=== PATIENT | male | born 1955 | race Caucasian/White ===

== ENCOUNTER 2021-10-30 16:13 | Emergency (ER) | payer MEDICARE, SELFPAY ==
--- NOTE | ~2021-10-30 | CT_ITS ---
EXAMINATION: CT abdomen pelvis wo con DATE: 10/30/2021 16:57 INDICATION: Left flank pain and dysuria TECHNIQUE: Computed tomography (CT) of the abdomen and pelvis was performed without intravenous contr ast. The dose-length product (DLP) was 655.30 mGy-cm. Automated exposure control and iterative recons truction technique were employed. COMPARISON: 02/05/2009 FINDINGS: The lung bases are clear. The heart size is normal. There is focal fatty infiltration of th e liver near the ligamentum teres. The spleen, pancreas, gallbladder, and adrenal glands are normal. There are multiple stones at the left ureterovesicular junction which measure up to 3 mm and cause mi ld left hydroureteronephrosis. Nonobstructing stones of the left kidney measure up to 5 mm. Nonobstru cting stones of the right kidney measure up to 8 mm. No pathologically enlarged abdominal or pelvic l ymph nodes are identified. There is no free intraperitoneal gas or evidence of bowel obstruction. Col onic diverticulosis is present without evidence of diverticulitis. There is severe lumbar spondylosis . There is a small umbilical hernia containing fat. IMPRESSION: 1. Multiple stones at the left ureterovesicular junction measuring up to 3 mm causing mild left hydro ureteronephrosis. 2. Bilateral nonobstructing nephrolithiasis. Reviewed, dictated and finalized at location F. IMPRESSION: 1. Multiple stones at the left ureterovesicular junction measuring up to 3 mm c ausing mild left hydroureteronephrosis. 2. Bilateral nonobstructing nephrolithiasis.
[2021-10-30 16:32] VITALS: BP 160/109; PULSE 80; RESP 16; TEMP 35.8; O2SAT 98
[2021-10-30] MEDS: KETOROLAC (*BKC) 60 MG/2 ML VIAL IM (16:39)
[2021-10-30 16:46] LABS: Add Urine Microscopic? YES; Appearance Urine Clear (Clear); Bilirubin Urine Negative (Negative); Blood Urine 3+ (Negative); Color Urine Light Yellow (Yellow); Glucose Urine UA Negative (Negative); Ketones Urine Negative (Negative); Leukocyte Esterase Ur Negative (Negative); Nitrate Urine Negative (Negative); Protein Urine Negative (Negative); Urobilinogen Urine 0.2 mg/dL (0.2-1.0)
[2021-10-30 16:47] LABS: Basophils Absolute Auto 0.03 K/mm3 (0.00-0.10); Basophils Percent Auto 0.4 % (0.0-1.0); Eosinophils Absolute Auto 0.09 K/mm3 (0.02-0.50); Eosinophils Percent Auto 1.1 % (1.0-6.0); Hematocrit 44.3 % (37.0-46.0); Hemoglobin 14.6 g/dL (12.4-15.3); Immature Granulocyte Absolute 0.05 K/mm3 (0.00-0.00); Immature Granulocyte Percent A 0.6 % (0.0-0.0); Lymphocytes Absolute Auto 0.89 K/mm3 (1.10-4.50); Lymphocytes Percent Auto 11.1 % (18.0-42.0); Mean Corpuscular Hemoglobin 29.6 pg (27.0-31.0); Mean Corpuscular Volume 89.7 fL (78.0-102.0); Mean Platelet Volume 10.3 fl (8.7-11.0); Monocytes Percent Auto 7.5 % (2.0-11.0); Neutrophils Absolute Auto 6.4 K/mm3 (1.7-7.2); Neutrophils Percent Auto 79.3 % (50.0-70.0); Platelet Count Result 244 K/mm3 (150-420); Red Blood Count 4.94 M/mm3 (4.70-6.10); Red Cell Distribution Width 13.3 % (11.6-14.4); White Blood Count 8.1 K/mm3 (4.8-10.8)
[2021-10-30 16:56] LABS: Squamous Epithelial Cell Urine Rare /hpf (Few); WBC Urine None seen /hpf (0-3)
[2021-10-30 16:57] LABS: Bacteria Urine Trace /hpf
[2021-10-30 17:00] LABS: Alanine Aminotransferase 38 U/L (16-63); Albumin Level 3.5 g/dL (3.4-5.0); Alkaline Phosphatase 62 U/L (46-116); Anion Gap 7 mmol/L (8-16); Aspartate Amino Transferase 38 U/L (15-37); Bilirubin,Total 0.4 mg/dL (0.00-1.00); Blood Urea Nitrogen 30 mg/dL (7-18); Calcium 8.5 mg/dL (8.5-10.1); Carbon Dioxide 27 mmol/L (21-32); Chloride 105 mmol/L (98-108); Estimated CRCL calculation 58 ml/min; Estimated Glomerular Filt Rate 60; Glucose 93 mg/dL (70-99); Lipase 129 U/L (73-393); Osmolality Calculated 294 mOsm/kg (285-295); Potassium 3.9 mmol/L (3.5-5.1); Sodium 139 mmol/L (136-145); Total Protein 6.7 g/dL (6.4-8.2)
--- NOTE | 2021-10-30 17:49 | ED.MALEGU ---
HPI - Male Genitourinary General Chief complaint: Urogenital-Male Stated complaint: possible kidney stones Time Seen by Provider: 10/30/21 16:15 Source: patient, EMS and RN notes reviewed Mode of arrival: ambulatory Limitations: no limitations History of Present Illness Complaint: other (left flank pain) Onset (ago): day(s) (1) Duration: progressively worsening Radiation: left flank Severity: moderate Severity scale (1-10): 7 Quality: aching and dull Relieving factors: none Exacerbating factors: none Related Data Home Medications Medication Instructions Recorded Confirmed ascorbate calcium (vitamin C) 500 500 mg PO DAILY 08/20/21 10/02/21 mg tablet cholecalciferol (vitamin D3) 10 10 mcg PO DAILY 08/20/21 10/02/21 mcg (400 unit) capsule meloxicam 7.5 mg tablet 7.5 mg PO DAILY 08/20/21 10/02/21 tumeric 100 mg-nkechi 150 mg-olive 1 cap PO DAILY 08/20/21 10/02/21 50 mg-oreg 150 mg-caprylate capsule Allergies Allergy/AdvReac Type Severity Reaction Status Date / Time erythromycin base AdvReac Unknown Abdominal Verified 10/30/21 17:11 discomfort Review of Systems Review of Systems: All systems reviewed & are unremarkable except as noted in HPI and below PMFSH Past Medical History Medical History Bilateral kidney stones Surgical History Surgical History History of hand surgery (~07/2019) Family History Family History Father Cancer Social History Social History Smoking status: Never smoker Alcohol intake: never Exam Const: General: no acute distress Orientation/consciousness: patient oriented x3 Limitations: no limitations HENMT: Ears: EAC's normal General nose exam: Normal external nose present and Normal nares present Face and sinus: sinuses nontender Mouth: Yes moist mucous membranes Eyes: Conjunctivae: conjunctivae normal Pupils: Equal, round and reactive pupils present EOM: EOMs intact bilaterally Neck: Neck: normal visual inspection and no lymphadenopathy Chest: Chest palpation & inspection: normal inspection of the chest Resp: Effort & Inspection: normal respiratory effort Auscultation: clear to auscultation bilaterally Cardio: Rate: regular rate Rhythm: regular rhythm GI: GI Palp: Yes Soft to palpation and No Tenderness to palpation present (GI) Auscultation: normal bowel sounds : General: Yes bladder normal to palpation and Yes no CVA tenderness Male General Exam: Yes normal external exam Back/Spine/Pelvis: Back: no CVA tenderness Skin: General skin exam: normal color Rashes: no rashes Neuro: General: patient oriented x3, moves all extremities, no meningeal signs and no focal motor deficits Cranial nerves: Yes CN's II-XII intact bilaterally Speech: normal speech Extrem: General: normal to inspection and no pedal edema Psych: Appearance: grossly normal and well kempt Mental Status: mental status grossly normal Affect: normal affect Attitude: cooperative Thought content: Yes Normal thought content present Course Course Emergency Course: Pt was stable in the ED. Less painful. Reevaluation(s) Date: 10/30/21 Time: 17:10 Vital Signs Vital signs: Vital Signs Temperature 35.8 C L 10/30/21 16:32 Pulse Rate 80 10/30/21 16:32 Respiratory Rate 16 10/30/21 16:32 Blood Pressure 160/109 H 10/30/21 16:32 Pulse Oximetry 98 10/30/21 16:32 Temperature 35.8 C L 10/30/21 16:32 Pulse Rate 80 10/30/21 16:32 Respiratory Rate 16 10/30/21 16:32 Blood Pressure 160/109 H 10/30/21 16:32 Pulse Oximetry 98 10/30/21 16:32 MDM - Male Genitourinary Differential Diagnosis Differential diagnosis: Likely other (kidney stones.) Medical Records Attestation: I reviewed the patient's medical records. Lab Data Attesta
[2021-10-30 18:12] VITALS: BP 145/86; PULSE 59; RESP 16; TEMP 36.6; O2SAT 100
== END 2021-10-30 18:14 | disposition home or self-care (01) ==
PROVIDERS: Emergency Provider Emergency Medicine; PCP Family Medicine
DX: N20.0 Calculus of kidney (principal)
CPT/HCPCS: 36415; 74176; 80053; 81001; 83690; 85025; 96372; 99284; J1885

== ENCOUNTER 2021-11-04 08:44 | Outpatient (CLI) | payer MEDICARE, SELFPAY ==
--- NOTE | ~2021-11-04 | XR_ITS ---
EXAMINATION: XR abdomen/kub 1V INDICATION: Calculus of the kidney TECHNIQUE: Supine views of the abdomen were obtained on 2 radiographs. COMPARISON: CT, 10/30/2021 FINDINGS: The previously described stones at the left ureterovesicular junction are not definitely id entified. Bilateral nephrolithiasis is stable. The bowel gas pattern is normal. Osteitis pubis is not ed. There is severe lumbar spondylosis. The visualized lung bases are clear. IMPRESSION: 1. Previously described left ureterovesicular junction stone is not definitely identified. 2. Bilateral nephrolithiasis. Reviewed, dictated and finalized at location F.
== END 2021-11-04 08:45 | disposition home or self-care (01) ==
LOC: ANHIMG 08:46
PROVIDERS: PCP Family Medicine; Visit Provider Urology
DX: N20.0 Calculus of kidney (principal)
CPT/HCPCS: 74018

== ENCOUNTER 2023-08-19 08:17 | Emergency (ER) | payer MEDICARE, SELFPAY ==
--- NOTE | 2023-08-19 08:23 | ED.EYEPROB ---
HPI - Eye Problem General Chief complaint: Eye Problems Stated complaint: EYE REDNESS/SINUS CONGESTION Time Seen by Provider: 08/19/23 08:42 Source: patient and RN notes reviewed Mode of arrival: ambulatory Limitations: no limitations History of Present Illness HPI Narrative: 68-year-old male presents concern for more than 2 week history of sinus congestion, pressure, drainage. Reports he is taking DayQuil for that. He reports of last couple days he has began having bilateral eye redness with white stringy drainage. He reports his has similar symptoms. He denies fever. chief complaint: eye redness Related Data Home Medications Medication Instructions Recorded Confirmed ascorbate calcium (vitamin C) 500 500 mg PO DAILY 08/20/21 08/19/23 mg tablet cholecalciferol (vitamin D3) 10 10 mcg PO DAILY 08/20/21 08/19/23 mcg (400 unit) capsule meloxicam 7.5 mg tablet 7.5 mg PO DAILY 08/20/21 08/19/23 turmeric 100 mg-nkechi 150 1 cap PO DAILY 08/20/21 08/19/23 mg-olive 50 mg-oreg 150 mg-capryl capsule Allergies Allergy/AdvReac Type Severity Reaction Status Date / Time erythromycin base AdvReac Unknown Abdominal Verified 08/19/23 08:42 discomfort Review of Systems Review of Systems: CONSTITUTIONAL: Denies malaise, chills, sweats, or fever. EYES: Denies visual changes. Reports redness, irritation, discharge. ENT: Reports rhinorrhea, congestion, sinus pain. Denies otalgia or sore throat. SKIN: Denies rash or itching. NEUROLOGIC: Denies numbness, weakness, or headache. PSYCHIATRIC: Denies anxiety or depression. All systems reviewed & are unremarkable except as noted in HPI and below PMFSH Past Medical History Medical History Bilateral kidney stones Surgical History Surgical History History of hand surgery (~07/2019) Family History Family History Father Cancer Social History Social History Smoking status: Never smoker Alcohol intake: never Comments At time of signature, agree with nursing past medical, surgical, social and family history. There is no relevant family history pertinent to the presenting complaint Exam Narrative: GENERAL: Well-appearing, well-nourished, and in no acute distress. HEAD: Normocephalic, atraumatic. EYES: PERRLA, sclera clear, and EOMI. No nystagmus. Bilateral conjunctivae injected with white drainage noted. Upper and lower eyelid unremarkable, no periorbital edema noted ENT: Nares clear, turbinates erythematous and edematous. Mucous membranes moist. TM pearly contreras with sharp light reflex bilaterally; no tragal tenderness. NECK: Supple. CHEST: No respiratory distress. Speaks in full sentences. HEART: Regular rate and rhythm. SKIN: Warm, dry, no visible rash. NEURO: Alert and oriented x3. PSYCH: Normal mood and affect Course Course Emergency Course: Patient is aware of diagnosis, understands and agrees to treatment plan. Anticipatory guidance given. Patient agrees to follow-up as directed and is aware of reasons to seek care at the emergency department. Portions of this record may have been created with voice recognition software Level of Care: Express Care Visit Vital Signs Vital signs: Reviewed. MDM - Eye Problem MDM Narrative Medical decision making narrative: Consideration of the following conditions may be warranted for the presenting problem, they are not final diagnoses: Bacterial conjunctivitis, allergic conjunctivitis, viral conjunctivitis, foreign body, blepharitis, chalazion, hordeolum, corneal abrasion, preseptal cellulitis, orbital cellulitis. No evidence of proptosis, ophthalmoplegia, vision loss, pain with eye movement. Exam findings show no acute concerns or changes; patient is non-toxic appearing a
[2023-08-19 08:24] VITALS: BP 146/92; PULSE 70; RESP 16; TEMP 35.9; O2SAT 98
== END 2023-08-19 08:53 | disposition home or self-care (01) ==
PROVIDERS: Emergency Provider Nurse Practitioner; PCP Family Medicine
DX: J01.90 Acute sinusitis, unspecified (principal); H10.9 Unspecified conjunctivitis
CPT/HCPCS: 99213; G0463

== ENCOUNTER 2024-03-19 21:28 | Emergency (ER) | payer MEDICARE, SELFPAY ==
[2024-03-19 21:34] VITALS: BP 166/89; PULSE 66; RESP 16; TEMP 36; O2SAT 98
--- NOTE | 2024-03-19 21:34 | ED.LOWEXIN ---
HPI - Extremity Injury (Lower) General Chief Complaint: Extremity Injury, Lower Stated Complaint: Lower Extremity Problem Time Seen by Provider: 03/19/24 21:33 Source: patient Mode of arrival: ambulatory Limitations: no limitations History of Present Illness HPI Narrative: 68-year-old male with a history of arthritis, kidney stones presents to the ED with a one-week history of -- right calf pain and swelling which has gotten progressively worse over the past few days. No history of trauma -- bruising behind right medial malleolus. No chest pain or shortness of breath Onset (ago): day(s) ( 7 days) Exacerbating factors: weight bearing and movement Other symptoms: none Related Data Allergies Allergy/AdvReac Type Severity Reaction Status Date / Time erythromycin base AdvReac Unknown Abdominal Verified 08/19/23 08:42 discomfort Review of Systems Review of Systems: All systems reviewed & are unremarkable except as noted in HPI and below Constitutional: Constitutional: Reports as per HPI and Reports no additional constitutional complaints Eyes: Eyes: Reports as per HPI and Reports no additional eye complaints ENT: Reports system reviewed and no additional complaints, except as documented and Reports as per HPI Cardiovascular: Cardiovascular: Reports as per HPI and Reports no additional cardiovascular complaints Respiratory: Respiratory: Reports as per HPI and Reports no additional respiratory complaints Gastrointestinal: Gastrointestinal: Reports as per HPI and Reports no additional gastrointestinal complaints Genitourinary: Genitourinary: Reports no additional male genitourinary complaints Musculoskeletal: Musculoskeletal: Reports no additional musculoskeletal complaints and Reports as per HPI Comments: right calf pain and swelling swelling and a deformity and joint pain involving multiple joints in including the knee Integumentary/Breasts: Skin/Breast: Reports system reviewed and no additional complaints, except as docu Comments: bruising below the right medial malleolus Neurologic: Reports system reviewed and no additional complaints, except as documented and Reports as per HPI Psychiatric: Psychiatric: Reports no additional psychiatric complaints and Reports as per HPI Endocrine: Endocrine: Reports no additional endocrine complaints and Reports as per HPI Hematologic/Lymphatic: Hematologic/Lymphatic: Reports no additional hematologic/lymphatic complaints and Reports as per HPI Allergic/Immunologic: Allergic/Immunologic: Reports no additional allergic/immunologic complaints and Reports as per HPI PMFSH Past Medical History Medical History Bilateral kidney stones Surgical History Surgical History History of hand surgery (~07/2019) Family History Family History Father Cancer Social History Social History Smoking status: Never smoker Alcohol intake: never Exam Narrative: blood pressure 166/89. Heart rate of 66. Oxygen saturation of 98% on room air. Const: General: no acute distress Orientation/consciousness: patient oriented x3 Limitations: no limitations HENMT: Head: normal to inspection Ears: external ears normal Face/Nose/Sinus: Normal external nose present Face and sinus: normal facial exam Mouth: Yes Normal oral and palatal mucosa present Throat: posterior oropharynx normal Eyes: Conjunctivae: conjunctivae normal Pupils: Equal, round and reactive pupils present EOM: EOMs intact bilaterally Direct Ophthalmoscopy: no photophobia Neck: Neck: normal visual inspection, no lymphadenopathy and no meningeal signs Chest: Chest palpation & inspection: normal inspection of the chest Resp: Effort & Inspection: normal respiratory effort Auscult
--- NOTE | 2024-03-19 21:43 | PC.NURSE ---
Dr Larsen spoke w/ pt and about needing U/S. Call placed to [place], spoke w/ house [facility] to see if u/s available at their facility. No u/s available at this time at [place].
--- NOTE | 2024-03-19 21:54 | ECG_ITS ---
Test Date: 2024-03-19 22:11:09 Measurements Intervals [place] Rate: 65 P: 55 OR: 206 QRS: -36 QRSD: 116 T: 72 QT: 384 QTc: 402 Interpretive Statements SINUS RHYTHM LEFT AXIS DEVIATION INTRAVENTRICULAR CONDUCTION DELAY LEFT VENTRICULAR HYPERTROPHY WITH ST-T CHANGE NONSPECIFIC T-WAVE ABNORMALITY- LATERAL LEADS BASELINE ARTIFACT- I, II, III, AVR, AVL, AVF, V1-V2, V4-V6 BORDERLINE ECG No previous ECG available for comparison Electronically Signed On 03-20-2024 08:47:01 CDT by Gonzales Tompkins D.O.
[2024-03-19 22:10] LABS: Basophils Absolute Auto 0.04 K/mm3 (0.00-0.10); Basophils Percent Auto 0.5 % (0.0-1.0); Eosinophils Absolute Auto 0.39 K/mm3 (0.02-0.50); Hematocrit 42.2 % (37.0-46.0); Hemoglobin 14.2 g/dL (12.4-15.3); Immature Granulocyte Absolute 0.05 K/mm3 (0.00-0.00); Immature Granulocyte Percent A 0.6 % (0.0-0.0); Lymphocytes Absolute Auto 1.12 K/mm3 (1.10-4.50); Lymphocytes Percent Auto 14.4 % (18.0-42.0); Mean Corpuscular HGB Conc 33.6 g/dL (32-36); Mean Corpuscular Hemoglobin 29.5 pg (27.0-31.0); Mean Corpuscular Volume 87.7 fL (78.0-102.0); Mean Platelet Volume 10.3 fl (8.7-11.0); Monocytes Absolute Auto 0.59 K/mm3 (0.10-0.90); Monocytes Percent Auto 7.6 % (2.0-11.0); Neutrophils Absolute Auto 5.61 K/mm3 (1.70-7.20); Neutrophils Percent Auto 71.9 % (50.0-70.0); Platelet Count Result 170 K/mm3 (150-420); Red Blood Count 4.81 M/mm3 (4.70-6.10); Red Cell Distribution Width 12.9 % (11.6-14.4); White Blood Count 7.8 K/mm3 (4.8-10.8)
[2024-03-19 22:27] LABS: INR 1.2; Partial Thromboplastin Time 25.7 Sec (23.9-30.70)
[2024-03-19 22:30] LABS: D Dimer 0.65 mg/L (0.19-0.50)
--- NOTE | 2024-03-19 22:35 | PC.NURSE ---
Pt restind, warm blanket given, explained wait time due to chemistry send out results and pt. stated understanding. Lights dimmed, call alegre at side. No needs at this time.
[2024-03-19 22:53] LABS: Alanine Aminotransferase 16 U/L (6-50); Albumin Level 3.6 g/dL (3.5-5.1); Alkaline Phosphatase 63 U/L (38-126); Anion Gap 7 mmol/L (4-12); Aspartate Amino Transferase 26 U/L (17-59); Bilirubin,Total 0.3 mg/dL (0.2-1.3); Blood Urea Nitrogen 28 mg/dL (9-20); Calcium 8.9 mg/dL (8.4-10.2); Carbon Dioxide 28 mmol/L (22-30); Chloride 101 mmol/L (98-107); Estimated CRCL calculation 45 ml/min; Estimated Glomerular Filt Rate 46; Glucose 146 mg/dL (65-110); Osmolality Calculated 290 mOsm/kg (285-295); Potassium 3.8 mmol/L (3.4-5.0); Sodium 136 mmol/L (137-145)
[2024-03-19 22:54] LABS: Lactic Acid Reflex 1.4 mmol/L (0.7-2.0)
[2024-03-19 23:00] VITALS: BP 129/79; PULSE 74; RESP 18; O2SAT 97
[2024-03-19 23:05] LABS: NT Pro B Type Natriuretic Pept 441 pg/mL (19.9-100); Troponin I < 0.012 ng/mL (0.000-0.034)
[2024-03-19] MEDS: ENOXAPARIN 100 MG/ML SYRINGE 85 MG SUB-Q (23:06)
[2024-03-19 23:44] VITALS: BP 124/84; PULSE 84; RESP 18; TEMP 36.6; O2SAT 97
== END 2024-03-19 23:44 | disposition left against medical advice (07) ==
PROVIDERS: Emergency Provider Internal Medicine Critical Care Medicine; PCP Family Medicine
DX: M79.89 Other specified soft tissue disorders (principal); N18.32 Chronic kidney disease, stage 3b
CPT/HCPCS: 36415; 80053; 83605; 83880; 84484; 85025; 85380; 85610; 85730; 93005; 96372; 99284; J1650

== ENCOUNTER 2024-03-21 07:23 | Outpatient (CLI) | payer MEDICARE, SELFPAY ==
--- NOTE | ~2024-03-21 | US_ITS ---
RIGHT LOWER EXTREMITY VENOUS ULTRASOUND Ordering provider: Alan Larsen MD History: . right leg swelling . Comparison: None. FINDINGS: --COMMON FEMORAL: Patent and free of thrombus. Normal compressibility, phasic flow and augmentation. --PROXIMAL SUPERFICIAL FEMORAL: Patent and free of thrombus. Normal compressibility, phasic flow and augmentation. --DISTAL SUPERFICIAL FEMORAL: Patent and free of thrombus. Normal compressibility, phasic flow and au gmentation. --POPLITEAL: Patent and free of thrombus. Normal compressibility, phasic flow and augmentation. --POSTERIOR TIBIAL: Patent and free of thrombus. Normal compressibility, phasic flow and augmentation . Mixed echogenicity area seen posteriorly in the popliteal fossa and extending from the thigh to the m edial calf suggestive of a hematoma. Clinical correlation and follow-up advised. IMPRESSION: Negative right lower extremity venous US. No deep vein thrombosis. Mixed echogenicity area seen posteriorly in the popliteal fossa and extending from the thigh to the m edial calf suggestive of a hematoma. Clinical correlation and follow-up advised. Reviewed, dictated and finalized at location A. IMPRESSION: Negative right lower extremity venous US. No deep vein thrombosis. Mixed echogenicity area seen posteriorly in the popliteal fossa and extending f rom the thigh to the medial calf suggestive of a hematoma. Clinical correlation and follow-up advised.
== END 2024-03-21 07:24 | disposition home or self-care (01) ==
PROVIDERS: Visit Provider Internal Medicine Critical Care Medicine
DX: M79.89 Other specified soft tissue disorders (principal)
CPT/HCPCS: 93971

== ENCOUNTER 2024-03-28 12:49 | Emergency (ER) | payer MEDICARE, SELFPAY ==
[2024-03-28 12:49] VITALS: BP 153/94; PULSE 80; RESP 18; TEMP 36.2; O2SAT 97
--- NOTE | 2024-03-28 12:55 | ED.BACK ---
HPI - Back Pain/Injury General Chief Complaint: Back Pain/Injury Stated Complaint: back pain Time Seen by Provider: 03/28/24 12:54 History of Present Illness HPI Narrative: Pt injured right hamstring a couple of weeks ago. Pt had swelling and bruising in his right leg and had lovenox for a couple of days awaiting a venous doppler which was negative. Pt thinks he has been favoring his right leg and now has pain in his right flank. Pt mowed the lawn this morning and was fine but later when he cooled off he noticed the tightness in his back worse with movement and better with rest. Pt denies problems with bladder or bowels or any numbness or weakness in legs. pt has had kidney stones in past and this does not feel like stones. Related Data Allergies Allergy/AdvReac Type Severity Reaction Status Date / Time erythromycin base AdvReac Unknown Abdominal Verified 03/28/24 13:11 discomfort Review of Systems Review of Systems: All systems reviewed & are unremarkable except as noted in HPI and below PMFSH Past Medical History Medical History Bilateral kidney stones Surgical History Surgical History History of hand surgery (~07/2019) Family History Family History Father Cancer Social History Social History Smoking status: Never smoker Alcohol intake: never Exam Const: General: cooperative, healthy appearing, comfortable and no acute distress Neck: Neck: normal visual inspection and full ROM Chest: Chest palpation & inspection: normal inspection of the chest Resp: Effort & Inspection: normal respiratory effort Auscultation: clear to auscultation bilaterally Back/Spine/Pelvis: Back: CVA tenderness (right with some muscle spasm) Thoracic/Lumbar Spine: thoracic and lumbar spine normal to inspection Skin: General skin exam: normal color and no rashes or lesions noted Neuro: General: patient oriented x3 Speech: normal speech Motor exam (neuro): 5/5 motor strength present throughout Sensory Exam: normal sensation Extrem: General: normal to inspection and full ROM Right upper extremity: normal to inspection Left upper extremity: normal to inspection Psych: Appearance: grossly normal Mental Status: mental status grossly normal Speech and movement: Normal speech and movement present Affect: normal affect Attitude: cooperative Thought process: Normal thought process present Thought content: Yes Normal thought content present Insight: Good insight present (Psych) Course Vital Signs Vital signs: Vital Signs Temperature 97.1 F L 03/28/24 12:49 Pulse Rate 80 03/28/24 12:49 Respiratory Rate 18 03/28/24 12:49 Blood Pressure 153/94 H 03/28/24 12:49 Pulse Oximetry 97 03/28/24 12:49 Oxygen Delivery Room Air 03/28/24 12:49 Temperature 98.3 F 03/28/24 14:10 Pulse Rate 84 03/28/24 14:10 Respiratory Rate 16 03/28/24 14:10 Blood Pressure 135/70 03/28/24 14:10 Pulse Oximetry 100 03/28/24 14:10 Oxygen Delivery Room Air 03/28/24 14:10 MDM - Back Pain/Injury Lab Data Labs: Lab Results 03/28/24 Range/Units 13:10 Urine Color Yellow (Yellow) Urine Appearance Clear (Clear) Urine pH 6.0 (5.0-8.0) Ur Specific [place] >= 1.030 H (1.010-1.020) Urine Protein Negative (Negative) Urine Glucose (UA) Negative (Negative) Urine Ketones Negative (Negative) Ur Blood (Man) Trace-intact H (Negative) Urine Nitrate Negative (Negative) Urine Bilirubin Negative (Negative) Urine Urobilinogen 0.2 (0.2-1.0) mg/dL Ur Leukocyte Esterase Negative (Negative) Discharge Plan Discharge Clinical Impression: Strain of lumbar region Patient Disposition: Home, Self-Care Condition: Stable Instructions:
[2024-03-28 13:15] LABS: Appearance Urine Clear (Clear); Color Urine Yellow (Yellow)
[2024-03-28 13:16] LABS: Add Urine Microscopic? NO; Bilirubin Urine Negative (Negative); Blood Urine Trace-intact (Negative); Glucose Urine UA Negative (Negative); Ketones Urine Negative (Negative); Leukocyte Esterase Ur Negative (Negative); Nitrate Urine Negative (Negative); Protein Urine Negative (Negative); Specific Grav Ur >= 1.030 (1.010-1.020); Urobilinogen Urine 0.2 mg/dL (0.2-1.0)
[2024-03-28 14:10] VITALS: BP 135/70; PULSE 84; RESP 16; TEMP 36.8; O2SAT 100
== END 2024-03-28 14:10 | disposition home or self-care (01) ==
PROVIDERS: Emergency Provider Emergency Medicine; PCP Family Medicine
DX: S39.012A Strain of muscle, fascia and tendon of lower back, initial encounter (principal); X58.XXXA Exposure to other specified factors, initial encounter
CPT/HCPCS: 81003; 99283

== ENCOUNTER 2025-05-26 19:28 | Emergency (ER) | payer MEDICARE, SELFPAY ==
[2025-05-26 19:39] VITALS: BP 137/85; PULSE 71; RESP 16; TEMP 36.6; O2SAT 98
--- NOTE | 2025-05-26 19:51 | ED_ITS ---
HPI - Extremity Injury (Lower) General Chief Complaint: Extremity Injury, Upper Stated Complaint: R Leg Pain Time Seen by Provider: 05/26/25 19:40 Source: patient and RN notes reviewed Mode of arrival: ambulatory Limitations: no limitations History of Present Illness HPI Narrative: 70-year-old male Presents Express Care complaining of injury to right lower leg. 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 Patient took some aspirin without relief. Patient has been doing ice as well. Patient reports the pain is to the upper part of his right calf. Patient denies any numbness, tingling or any other injuries. Patient denies any significant past medical history. Related Data Allergies Allergy/AdvReac Type Severity Reaction Status Date / Time erythromycin base AdvReac Unknown Abdominal Verified 03/28/24 13:11 discomfort Review of Systems Review of Systems: CONSTITUTIONAL: Denies fever, chills, or sweats. EYES: Denies visual changes, redness, or discharge. ENT: Denies rhinorrhea, congestion, sore throat, or otalgia. CARDIOVASCULAR: Denies chest pain, palpitations, or edema. RESPIRATORY: Denies cough or dyspnea. GASTROINTESTINAL: Denies abdominal pain, nausea, vomiting, or diarrhea. GENITOURINARY: Denies dysuria or hematuria. SKIN: Denies rash, wound, or itching. MUSCULOSKELETAL: Denies back pain, joint pain, or myalgia. Positive for right leg pain. NEUROLOGIC: Denies headache, numbness, or weakness. PSYCHIATRIC: Denies anxiety or depression. All other systems reviewed are negative, except as documented in HPI. [facility] Past Medical History Medical History Bilateral kidney stones Surgical History Surgical History History of hand surgery (~07/2019) Family History Family History Father Cancer Social History Social History Smoking status: Never smoker Alcohol intake: never Comments At the time of my signature, I reviewed and agree with the nursing past medical, surgical, social, and family history. There is no relevant family history pertinent to the patient complaint. Exam Narrative: GENERAL: This is a well-nourished, well-developed adult, in no apparent distress. They are non ill-appearing, nontoxic appearing. HEAD: normocephalic, atraumatic. EYES: Sclera clear/white. Vision is grossly intact. Conjunctiva normal. Extraocular movement intact. EARS: External ears normal Hearing grossly intact. NOSE: External nose normal THROAT: Mucous membranes moist NECK: Neck supple CARDIOVASCULAR: Regular rate and rhythm RESPIRATORY: Respiratory rate normal, respiratory effort nonlabored, no respiratory distress NEURO: awake, alert, and oriented to person, place and time. There were no obvious focal neurologic abnormalities. EXTREMITIES: Right lower leg/knee: No obvious deformity, injury, swelling, bruising, redness. Normal range of motion. Tenderness to palpation to right posterior upper calf. No palpable cord. No valgus or varus laxity. Capillary refill less than 3 seconds. Normal sensation. Neurovascular status intact distal injury. BACK: Nontender without deformity. Course Course Emergency Course: Portions of this record may have been created with voice recognition software Level of Care: Express Care Visit Vital Signs Vital signs: Reviewed MDM - Extremity Injury (Lower) MDM Narrative Medical decision making narrative: Likely patient has muscle strain. Will send him home with muscle relaxers. D iscussed rice therapy and supportive care. Discussed physical exam findings. Advised supportive measures and signs/symptoms to go to the ER. Pt is appropriate for outpt treatment and f/u. Differential Diagnosis Differential diagnosis: Likely other (Calf sprain, muscle strain, knee sprain,) Critical Care Time Critical Care Time Critical Care Time: No Discharge Plan Discharge Clinical Impression: Muscle strain of lower leg Qualifiers: Encounter type: initial encounter Laterality: right Qualified Code(s): S86.911A - Strain of unspecified muscle(s) and tendon(s) at lower leg level, right leg, initial encounter Patient Disposition: Home Condition: Stable Instructions: Muscle Strain (ED) Additional Instructions: Rest and elevate the leg; bear weight as tolerated Apply ice 15-20 minute intervals several times a day Keep it wrapped with KIM or elastic bandage Take the muscle relaxers as directed. Do not Drive or operate machinery while taking this medication as it may make you drowsy. You may take ibuprofen 600 mg to 800 mg every 6-8 hours. Do not exceed more than 800 mg of ibuprofen per dose. Do not exceed more than 3200 mg ibuprofen in a day. You may take up to 1000 mg Tylenol every 6-8 hours. Do not exceed 1000 mg per dose, do exceed more than 4000 mg of Tylenol in a day. Follow up with your primary care provider orthopedist as needed in 1-2 weeks especially if pain is persisting after 10 days. Patient Language: Portuguese Prescriptions: New methocarbamol 750 mg tablet 750 mg PO TID PRN (Reason: muscle spasm) Qty: 12 0RF Follow-up/Referrals: PHYSICIAN,CUSTOM GRINDER [Primary Care Provider, Internal Medicine] Kelton Zamarripa MD [Physician, Orthopedics] Time of Disposition: 19:48
== END 2025-05-26 19:54 | disposition home or self-care (01) ==
DX: S86.911A Strain of unspecified muscle(s) and tendon(s) at lower leg level, right leg, initial encounter (principal); X58.XXXA Exposure to other specified factors, initial encounter
CPT/HCPCS: 99213; G0463